=== PATIENT | male | born 1985 | race Two or more races ===

== ENCOUNTER → 2019-08-12 | Emergency (ER) | payer SELFPAY ==
[~2019-08-12] VITALS: Ht 172.7 cm; Wt 72.6 kg
[~2019-08-12] MED LIST: DexAMETHasone SOD PHOS 10MG/1ML VIAL INJ IV ONE; HYDROmorphone HCL 2 MG/ML VL IM ONE; HYDROmorphone HCL 2 MG/ML VL ONE; IOHEXOL 300 MG/ML 100ML BOTTLE IJ ONE; ONDANSETRON HCL 4 MG/2 ML VIAL IV ONE; SODIUM CHLORIDE 0.9% 1,000 ML IV ONE; cefTRIAXone 1GM/50ML D5W 50 ML IV ONE
[2019-08-12 10:43] LABS: Basophils # (auto) 0 10 ^3/uL (0-0.2); Basophils % (auto) 0.2 % (0.0-2.0); Eosinophils # (auto) 0 10 ^3/uL (0-0.8); Eosinophils % (auto) 0.1 % (0.0-7.0); Hematocrit 38.7 % (41.0-53.0); Hemoglobin 12.9 g/dL (13.5-17.5); Lymphocytes # (auto) 0.6 10 ^3/uL (0.4-5.4); Lymphocytes % (auto) 3.2 % (10.0-50.0); Mean Corpuscular Hemoglobin 32.8 pg (28.0-32.0); Mean Corpuscular Hgb Conc. 33.4 g/dL (32.0-36.0); Mean Corpuscular Volume 98.5 fL (80.0-100.0); Monocytes # (auto) 1.1 10 ^3/uL (0-1.3); Monocytes % (auto) 5.6 % (0.0-12.0); Neutrophils % (auto) 90.9 % (37.0-80.0); Platelet Count (auto) 189 10^3/uL (140-450); Red Blood Cells 3.93 10^6/uL (4.5-5.90); Red Cell Distribution Width 12.7 % (11.8-14.3); White Blood Cell 18.7 10^3/uL (4.4-10.8)
[2019-08-12 11:02] LABS: Potassium 3.8 mmol/L (3.5-5.1)
[2019-08-12 11:20] LABS: Albumin 3.5 g/dL (3.4-5.0); BUN/Creatinine Ratio 40.5; Bilirubin, Total 0.9 mg/dL (0.2-1.0); Magnesium 2.2 mg/dL (1.6-2.6); Total Protein 6.2 g/dL (6.4-8.2)
[2019-08-12 17:50] VITALS: BP 110/47
== END | disposition short-term general hospital (02) ==
LOC: ER 08:07 → EDBD 08:07
DX: S32.810A Multiple fractures of pelvis with stable disruption of pelvic ring, initial encounter for closed fracture (principal); S32.10XA Unspecified fracture of sacrum, initial encounter for closed fracture; S34.109A Unspecified injury to unspecified level of lumbar spinal cord, initial encounter; F17.210 Nicotine dependence, cigarettes, uncomplicated; F15.10 Other stimulant abuse, uncomplicated; Z59.0 Homelessness; V03.90XA Pedestrian on foot injured in collision with car, pick-up truck or van, unspecified whether traffic or nontraffic accident, initial encounter; Y93.89 Activity, other specified; Y99.8 Other external cause status; Y92.410 Unspecified street and highway as the place of occurrence of the external cause
CPT/HCPCS: 36415; 71045; 72128; 72131; 72193; 80053; 82550; 83735; 85025; 93005; 96372; 96374; 99285; J0696; J1100; J1170; J7030; Q9967

== ENCOUNTER 2019-09-06 19:39 | Emergency (ER) | payer MEDICAID ==
[~2019-09-06] VITALS: Ht 172.7 cm; Wt 77.1 kg
[2019-09-06] MEDS ORDERED: HYDROcodone-ACET 5/325MG TAB PO ONE (20:15)
[2019-09-06 21:07] VITALS: BP 120/69
== END 2019-09-06 21:06 | disposition home or self-care (01) ==
LOC: ER 19:43
DX: S32.9XXD Fracture of unspecified parts of lumbosacral spine and pelvis, subsequent encounter for fracture with routine healing (principal); G89.29 Other chronic pain; M54.5 Low back pain; F17.210 Nicotine dependence, cigarettes, uncomplicated; Z76.0 Encounter for issue of repeat prescription; Z59.0 Homelessness; X58.XXXD Exposure to other specified factors, subsequent encounter